=== PATIENT | female | born 1970 | race Two or more races ===

== ENCOUNTER 2020-05-17 03:36 | Day surgery (SDC) | payer OTHER ==
[~2020-05-17] VITALS: Ht 160 cm; Wt 81.6 kg
[2020-05-17] MEDS ORDERED: ATIVAN0.5 M1 (03:37)
[2020-05-20] MEDS ORDERED: ACYCLOVIR200 MG (08:14)
[2020-05-20] MEDS ORDERED: BUTALBITAL-ACE1 EACH (08:14)
[2020-05-20] MEDS ORDERED: ZOLPIDEM TARTRA10 MG (08:14)
[2020-05-20] MEDS ORDERED: ALPRAZOLAM1 MG (08:14)
[2020-05-20] MEDS ORDERED: FLUOXETINE HCL20 MG (08:14)
== END 2020-05-17 16:22 | disposition home or self-care (01) ==
LOC: CIR.AMB 03:36 → ER 03:36 → SEC-K 08:25 → ER 08:25 → O/R 08:25 → EDSTATUS 09:00 → CIR.AMB 16:22 → O/R 05-19 11:27 → SEC-K 05-19 11:27
PROVIDERS: ATTEND Surgery
DX: K80.00 Calculus of gallbladder with acute cholecystitis without obstruction (principal); Z20.828 Contact with and (suspected) exposure to other viral communicable diseases